=== PATIENT | male | born 1950 | race American Indian/Alaskan Native ===

== ENCOUNTER → 2023-04-06 | Outpatient (BNVA) | payer MEDICARE, MEDICAID, SELFPAY | END | disposition home or self-care (01) | PROVIDERS: PCP Nurse Practitioner Family; Referring Provider Nurse Practitioner Family; Visit Provider Urology ==

== ENCOUNTER → 2024-06-09 | Outpatient (CLI) | payer MEDICARE, MEDICAID, SELFPAY ==
[2024-06-09 12:01] LABS: Collection Type, Urine Clean Catch; Squamous Epithelial Cell,Urine 0 /hpf (0-5)
[2024-06-09 12:15] LABS: Basophils # (Auto) 0.1 Thou/mm3 (0.0-0.2); Basophils % (Auto) 1 % (0-2.5); Eosinophils # (Auto) 0.2 Thou/mm3 (0.0-0.5); Eosinophils % (Auto) 2 % (0-10); Hematocrit 36.6 % (41.0-53.0); Hemoglobin 12.2 g/dL (13.5-16.0); Immature Granulocytes % (Auto) 0 % (0-0); Immature Granulocytes Auto 0.03 Thou/mm3 (0.00-0.00); Lymphocytes # (Auto) 1.5 Thou/mm3 (1.0-4.8); Lymphocytes % (Auto) 20 % (10-50); Mean Corpuscular HGB Conc 33.3 g/dl (31.0-37.0); Mean Corpuscular Hemoglobin 28.7 pg (25.0-35.0); Mean Corpuscular Volume 86 fL (80-100); Monocytes # (Auto) 0.5 Thou/mm3 (0.0-0.8); Monocytes % (Auto) 7 % (0-12); Neutrophils # (Auto) 5.2 Thou/mm3 (1.8-7.7); Neutrophils % (Auto) 69 % (37-80); Nucleated Red Blood Cell % 0 /100 WBC (0); Platelet Count 147 Thou/mm3 (140-440); RDW Standard Deviation 41.7 fL (35.1-43.9); Red Blood Count 4.25 Miln/mm3 (4.50-5.90); White Blood Count 7.5 Thou/mm3 (3.8-10.6)
[2024-06-09 12:23] LABS: Bilirubin,Urine Negative (Negative); Blood,Urine Negative (Negative); Clarity,Urine Clear (Clear/Hazy); Color,Urine Yellow (Lt Yel-Yel); Glucose, Urine Negative (Negative); Ketones,Urine Negative (Negative); Leukocyte Esterase,Urine Negative (Negative); Nitrite,Urine Negative (Negative); PH,Urine 5.5 (5.0-7.0); Protein,Urine Trace (Neg - Trace); RBC,Urine 2 /hpf (0-3); Specific Gravity,Urine 1.026 (1.001-1.035); Urobilinogen,Urine Negative mg/dL (0.0-1.0); WBC,Urine 1 /hpf (0-5)
[2024-06-09 12:26] LABS: Parathyroid Hormone Intact 114.4 pg/ml (18.5-88.0)
[2024-06-09 12:29] LABS: Alanine Aminotransferase 15 U/L (10-49); Albumin, Serum 4.2 gm/dL (3.4-4.8); Albumin/Globulin Ratio 1.6 (1.2-2.2); Alkaline Phosphatase 81 U/L (46-116); Anion Gap 7 (7-16); Aspartate Amino Transferase 20 U/L (0-34); BUN/Creatinine Ratio 13 Ratio (12-20); Bilirubin,Total 0.4 mg/dL (0.3-1.2); Blood Urea Nitrogen 17 mg/dL (9-23); Carbon Dioxide 25.6 mMol/L (20.0-31.0); Chloride 107 mMol/L (98-107); Creatinine (Component) 1.3 mg/dL (0.6-1.3); Globulin 2.7 gm/dL (2.3-3.5); Glucose 96 mg/dL (74-106); Osmolality,Calculated 280 (275-295); Potassium 3.8 mMol/L (3.4-5.1); Sodium 140 mMol/L (136-145); Total Protein 6.9 gm/dL (5.7-8.2); eGFR 57 See Note
== END | disposition home or self-care (01) ==
LOC: COPL 11:09
PROVIDERS: PCP Physician Assistant; Referring Provider Internal Medicine; Visit Provider Internal Medicine
DX: I10 Essential (primary) hypertension (principal); N18.30 Chronic kidney disease, stage 3 unspecified; E78.5 Hyperlipidemia, unspecified
CPT/HCPCS: 36415; 80053; 81001; 83970; 85025

== ENCOUNTER → 2024-08-02 | Outpatient (BNVA) | payer MEDICARE, MEDICAID, SELFPAY | END | disposition home or self-care (01) | PROVIDERS: PCP Nurse Practitioner Family; Referring Provider Nurse Practitioner Family; Visit Provider Urology | DX: N40.1 Benign prostatic hyperplasia with lower urinary tract symptoms (principal); N13.8 Other obstructive and reflux uropathy; C61 Malignant neoplasm of prostate; Z80.42 Family history of malignant neoplasm of prostate; I10 Essential (primary) hypertension; Z86.73 Personal history of transient ischemic attack (TIA), and cerebral infarction without residual deficits; E78.00 Pure hypercholesterolemia, unspecified | CPT/HCPCS: 81003; 99213; G0463 ==

== ENCOUNTER → 2024-08-19 | Outpatient (CLI) | payer MEDICARE, MEDICAID, SELFPAY ==
--- NOTE | 2024-08-19 | XR_ITS ---
Examination: Bone scan whole body, radioisotope Date and time of exam: August 19, 2024 1419 hours INDICATIONS: Elevated PSA and laboratory examination this week, diagnosis malignant neoplasm prostate staging Technique: Study has been performed with intravenous administration of 23.3 mci 99M technetium MDP. Anterior, posterior whole body images are obtained. Images have been obtained including the lower extremities. Findings: Abnormal increased isotope accumulation L5, L2, L1 and multiple spots in the thoracic and cervical spine Abnormal increased uptake posterior multiple left ribs Increased uptake also in the iliac bones bilaterally Asymmetric uptake about the knees IMPRESSION: Findings most consistent with widespread osseous metastatic disease Consider plain films cervical thoracic lumbar spine, bilateral ribs AP pelvis follow-up
--- NOTE | 2024-08-19 15:11 | XR_ITS ---
Examination: PA lateral chest 2 views TECHNIQUE: Upright PA lateral chest 2 views Exam date and time: August 19, 2024 1601 hours Comparison March 04, 2019 INDICATIONS: Solitary pulmonary nodule right upper lobe on chest x-ray March 04, 2019 FINDINGS: Normal heart size Median sternotomy wires Aortic prosthetic valve Blunting of the right lateral costophrenic angle No pneumonia or pulmonary edema Status post left thoracotomy No current pulmonary nodules IMPRESSION: No current pulmonary nodules
== END | disposition home or self-care (01) ==
PROVIDERS: PCP Nurse Practitioner Family; Referring Provider Urology; Visit Provider Urology
DX: C61 Malignant neoplasm of prostate (principal); C79.9 Secondary malignant neoplasm of unspecified site
CPT/HCPCS: 71046; 78306; A9503

== ENCOUNTER → 2024-08-30 | Outpatient (CLI) | payer MEDICARE, MEDICAID, SELFPAY ==
--- NOTE | 2024-08-30 16:30 | XR_ITS ---
Examination: CT abdomen and pelvis without contrast. Coronal 3-D reconstructions. Sagittal 2-D reconstructions. Date and time of exam:August 30, 2024 0903 hours Comparison August 07, 2017 INDICATIONS: Diagnosis malignant neoplasm prostate, widespread osseous metastatic disease on nuclear medicine bone scan August 19, 2024, restaging CTDI: vol (mGy): 8.92 DLP: (mGycm): 507 Technique: Axial images of the abdomen have been obtained, 3 mm slice thickness Intravenous contrast material has not been administered. Low dose protocols were performed. One or more of the following dose reduction techniques were used; automated exposure control, adjustment of the mA and/or KV according to patient size, use of iterative reconstruction technique. Findings: No focal liver lesions Absent gallbladder Spleen is not enlarged No pancreatic or adrenal mass Moderate bilateral renal parenchymal scar formation Complex cyst posterior margin right kidney, axial image 102, 27 mm irregular margins Aorta normal size No abdominal or pelvic lymphadenopathy Colonic diverticulosis, no diverticulitis AP prostate dimension 3.3 cm Focal sclerotic areas throughout the bones, most prominent posterior right iliac bone axial image 210, measuring 18 mm IMPRESSION: Recommend renal sonography to assess complex cyst posterior margin right kidney No abdominal or pelvic lymphadenopathy Osteoblastic metastatic disease
== END | disposition home or self-care (01) ==
PROVIDERS: PCP Nurse Practitioner Family; Referring Provider Urology; Visit Provider Urology
DX: N28.1 Cyst of kidney, acquired (principal); C79.9 Secondary malignant neoplasm of unspecified site; C61 Malignant neoplasm of prostate
CPT/HCPCS: 74176

== ENCOUNTER → 2024-10-07 | Outpatient (BNVA) | payer MEDICARE, MEDICAID, SELFPAY | END | disposition home or self-care (01) | PROVIDERS: Visit Provider Urology | DX: N35.919 Unspecified urethral stricture, male, unspecified site (principal); N40.1 Benign prostatic hyperplasia with lower urinary tract symptoms; N13.8 Other obstructive and reflux uropathy; C61 Malignant neoplasm of prostate; I10 Essential (primary) hypertension; E78.00 Pure hypercholesterolemia, unspecified; Z86.73 Personal history of transient ischemic attack (TIA), and cerebral infarction without residual deficits | CPT/HCPCS: 52000; 81003; 96372; A4217; A4649; C1894; J1580; A9270 ==

== ENCOUNTER 2024-11-02 08:00 | Day surgery (SDC) | payer MEDICARE, MEDICAID, SELFPAY ==
--- NOTE | 2024-11-01 10:30 | EKG_ITS ---
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: MILTON : 1950 Requested By: Joel Monteiro Order Number: [id number] Reading MD: Joel Monteiro Measurements Intervals [place] Rate: 57 P: 66 AR: 222 QRS: -32 QRSD: 117 T: 78 QT: 412 QTc: 403 Interpretive Statements SINUS BRADYCARDIA WITH FIRST DEGREE AV BLOCK MARKED LEFT AXIS DEVIATION [QRS AXIS < -30] MODERATE INTRAVENTRICULAR CONDUCTION DELAY [110+ ms QRS DURATION] MINIMAL VOLTAGE CRITERIA FOR LVH, CONSIDER NORMAL VARIANT [MEETS CRITERIA IN ONE OF: R(aVL), S(V1), R(V5), R(V5/V6)+S(V1)] NONSPECIFIC T-WAVE ABNORMALITY Compared to ECG 03/20/2020 08:56:22 First degree AV block now present T-wave abnormality now present /store/S0/[id number]/ecg/[id number].pdf
[2024-11-01 10:32] VITALS: BMI 26.7
[2024-11-01 12:03] LABS: Alanine Aminotransferase 16 U/L (10-49); Albumin, Serum 4.6 gm/dL (3.4-4.8); Albumin/Globulin Ratio 1.4 (1.2-2.2); Alkaline Phosphatase 80 U/L (46-116); Anion Gap 8 (7-16); Aspartate Amino Transferase 21 U/L (0-34); BUN/Creatinine Ratio 16 Ratio (12-20); Bilirubin,Total 0.7 mg/dL (0.3-1.2); Blood Urea Nitrogen 27 mg/dL (9-23); Calcium 9.2 mg/dL (8.3-10.6); Calcium (Corrected) 9.2 mg/dL (8.5-10.1); Carbon Dioxide 25.1 mMol/L (20.0-31.0); Chloride 109 mMol/L (98-107); Creatinine (Component) 1.7 mg/dL (0.6-1.3); Estimated Creatinine Clearance 44.9 mL/min (>60); Globulin 3.2 gm/dL (2.3-3.5); Glucose 100 mg/dL (74-106); Osmolality,Calculated 288 (275-295); Potassium 4.2 mMol/L (3.4-5.1); Sodium 142 mMol/L (136-145); Total Protein 7.8 gm/dL (5.7-8.2); eGFR 42 See Note
--- NOTE | 2024-11-01 15:12 | SUR.PREOP ---
Pt has history of CVA, memory loss, lives with his son with transport services. Instructions given to pt and transport person which will bring him tomorrow.
--- NOTE | 2024-11-01 15:14 | SUR.PREOP ---
Cardiac records reviewed with Dr Monteiro
[2024-11-02] VITALS (9 sets, daily range): BP systolic 161–186; BP diastolic 81–96; PULSE 53–73; RESP 12–18; TEMP 36.5–36.7; O2SAT 98–100; BMI 27.0
[2024-11-02] MEDS: RINGERS LACTATED 1000 ML 1,000 ML 20 ML IV (08:41)
[2024-11-02] MEDS: hydrALAZINE INJ 20 MG/ML VIAL 5 MG IV (10:07)
--- NOTE | 2024-11-02 10:08 | PD.SUROPNT ---
Date of Procedure 11/02/24 Pre Op Diagnosis BPH with urinary obstruction and LUTS, biopsy-proven adenocarcinoma of the prostate gland, urethral stricture dense Post Op Diagnosis Same plus stricture of fossa navicularis Procedure Urethral dilation with male urethral sounds, cystoscopic examination, DVIU, insertion of Greenberg catheter Findings Stricture of the fossa navicularis, dense stricture distal to external urinary sphincter, BPH with urinary obstruction and prostate cancer Procedure Description Indication for procedure this is a 74-year-old gentleman this patient has history of injury to the pelvis. Patient had developed urethral stricture he had DVIU in the past. He had elevated PSA recently he was diagnosed with prostate cancer. He had a cystoscopic examination in the office was found to have a dense stricture distal to the external sphincter. He was recommended cystoscopic examination DVIU procedure and complications were discussed with patient in great detail informed consent is obtained. The patient received 160 mg Gentamicin IM pre-op prophylaxis. Informed consent was obtained for the procedure. General anesthesia was given uneventfully patient was positioned in a dorsal lithotomy position the patient was prepped in a sterile manner. Local anesthetic was placed into the urethra. Cystoscopy was then performed he had stricture of fossa navicularis dilation with male urethral sounds up to 26 Citizen Of [place] was carried out. The urethra had dense stricture distal to the external urinary sphincter. Next I took the a DVIU instrument I passed the 5 Citizen [place] open-ended ureteral stent into the bladder. With cold knife I cut the dense stricture at 12:00. Next I was able to advance the scope into the bladder. There was [bilobar prostatic enlargement. There was no involvement of bladder neck by prostatic cancer, examination of the bladder revealed no evidence of cancerous lesions, papillary or polyp type lesions or stones. There was marked] trabeculation Both ureters were putting out clear urine. The bladder was completely drained and the scope removed. #18 Greenberg catheter was inserted balloon was inflated with 10 cc of water the patient tolerated the procedure well. Post-op instructions were given. The patient is to call the office should any problems occur. Pathology / specimen None Estimated Blood Loss 1.0 Condition Stable Disposition PACU Surgeon Derek Schrader MD Surgical Staff Operation Date: 11/02/24 10:00 Case Staff Anesthesiologist: Joel Monteiro
--- NOTE | 2024-11-02 10:23 | SUR.PHASEI ---
0955: Pt received in [facility] via [employer]. Report from Lili RN, Ketan RN, Dr. Monteiro. Pt groggy, but awake. Resp even, unlabored. BP elevated 182/89. Anesthesia stated order for medication written. If BP does not come down follow order. Other VS stable. Rowland to gravity draining clear, pale yellow urine. Pt denies pain. 1007: BP not coming down. Hydralazine 5 mg IV given. 1015: BP coming down at 165/85. Anesthesia at bedside. Stated BP good. 1025: BP has remained down 168/87. Urine in rowland bag becoming pale pink in color. Pt denies pain.
--- NOTE | 2024-11-02 10:40 | SUR.PHASEII ---
1035: Pt more awake, alert. VS stable. Denies pain. Sitting up tolerating po fluids with no difficulty swallowing and no n/v.
--- NOTE | 2024-11-02 11:50 | SUR.PHASEII ---
1105: Pt fully awake, oriented x3. VS stable. Denies pain. Greenberg draining clear pale pink urine. Pt dressed and assisted to transport chair. Ambulation steady. Pt and certified caregiver stated understanding of discharge instructions. Pt also instructed to pickling solution maker his medication at [facility]. Pt discharged from [facility] in stable condition.
== END 2024-11-02 11:05 | disposition home or self-care (01) ==
PROVIDERS: Anesthesiology; Surgery; PCP Nurse Practitioner Family; Referring Provider Urology; Visit Provider Urology
PROC: 0T7D8ZZ Dilation of Urethra, Via Natural or Artificial Opening Endoscopic (ICD-10-PCS; CPT 52276; principal; 2024-11-02 09:45)
DX: N35.919 Unspecified urethral stricture, male, unspecified site (principal); C61 Malignant neoplasm of prostate; N40.1 Benign prostatic hyperplasia with lower urinary tract symptoms; N13.8 Other obstructive and reflux uropathy; Z01.810 Encounter for preprocedural cardiovascular examination
CPT/HCPCS: 52276; 36415; 80053; 93005; A4217; A4649; C1894; J0360; J1100; J1580; J2371; J2704; J2765; J3010; J3490; J7120

== ENCOUNTER → 2024-11-04 | Outpatient (BNVA) | payer MEDICARE, MEDICAID, SELFPAY | END | disposition home or self-care (01) | PROVIDERS: Visit Provider Student in an Organized Health Care Education/Training Program | DX: Z76.89 Persons encountering health services in other specified circumstances (principal) | CPT/HCPCS: 99212; G0463 ==

== ENCOUNTER 2024-11-06 21:44 | Emergency (ER) | payer MEDICARE, MEDICAID, SELFPAY ==
[2024-11-06 22:44] VITALS: BP 113/67; PULSE 71; RESP 16; TEMP 36.7; O2SAT 96; BMI 27.5
--- NOTE | 2024-11-06 22:52 | PD.EDRME ---
Rapid Medical Screening Exam RME Arrival date/time: 11/06/24 21:44 Chief Complaint: Urogenital-Male Time Seen by Provider: 11/06/24 22:21 Vital signs: Vital Signs Temperature 98.1 F 11/06/24 22:44 Pulse Rate 71 11/06/24 22:44 Respiratory Rate 16 11/06/24 22:44 Blood Pressure 113/67 11/06/24 22:44 Pulse Oximetry (%) 96 11/06/24 22:44 Oxygen Delivery Method Room Air 11/06/24 22:44 Vital signs reviewed by provider: Yes RME Narrative: 74-year-old male presents with a 2-hour history of his Greenberg catheter not draining. Family indicates it was flowing and then after they emptied it out 2 hours ago it stopped draining. Greenberg was placed by urologist who performed the procedure on his prostate for prostate cancer. He states it was only supposed to be in place for 5 days and tomorrow is the fifth day. Family is under the impression that he is to return here for the removal. I informed the family that it is likely that he has an appointment with the urologist tomorrow.
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
== END 2024-11-07 00:11 | disposition home or self-care (01) ==
PROVIDERS: Emergency Provider Emergency Medicine; PCP Nurse Practitioner Family
DX: T83.091A Other mechanical complication of indwelling urethral catheter, initial encounter (principal); C61 Malignant neoplasm of prostate; Y84.6 Urinary catheterization as the cause of abnormal reaction of the patient, or of later complication, without mention of misadventure at the time of the procedure
CPT/HCPCS: 81001; 87086; 99281

== ENCOUNTER 2024-11-16 12:39 | Emergency (ER) | payer MEDICARE, MEDICAID, SELFPAY ==
[2024-11-16 12:46] VITALS: BP 126/72; PULSE 63; RESP 18; TEMP 36.6; O2SAT 98; BMI 26.2
--- NOTE | 2024-11-16 13:01 | PD.EDRME ---
Rapid Medical Screening Exam RME Arrival date/time: 11/16/24 12:39 74-year-old male presents to the emergency department today for complaint of hematuria Chief Complaint: Urogenital-Male Vital signs: Vital Signs Temperature 97.8 F 11/16/24 12:46 Pulse Rate 63 11/16/24 12:46 Respiratory Rate 18 11/16/24 12:46 Blood Pressure 126/72 11/16/24 12:46 Pulse Oximetry (%) 98 11/16/24 12:46 Oxygen Delivery Method Room Air 11/16/24 12:46
[2024-11-16 13:22] LABS: Collection Type, Urine Clean Catch
[2024-11-16 13:25] LABS: Basophils # (Auto) 0.1 Thou/mm3 (0.0-0.2); Basophils % (Auto) 1 % (0-2.5); Eosinophils # (Auto) 0.1 Thou/mm3 (0.0-0.5); Eosinophils % (Auto) 2 % (0-10); Hematocrit 36.4 % (41.0-53.0); Hemoglobin 12.4 g/dL (13.5-16.0); Immature Granulocytes % (Auto) 0 % (0-0); Immature Granulocytes Auto 0.01 Thou/mm3 (0.00-0.00); Lymphocytes # (Auto) 1.7 Thou/mm3 (1.0-4.8); Lymphocytes % (Auto) 23 % (10-50); Mean Corpuscular HGB Conc 34.1 g/dl (31.0-37.0); Mean Corpuscular Hemoglobin 29.1 pg (25.0-35.0); Mean Corpuscular Volume 85 fL (80-100); Monocytes # (Auto) 0.3 Thou/mm3 (0.0-0.8); Monocytes % (Auto) 4 % (0-12); Neutrophils # (Auto) 5.4 Thou/mm3 (1.8-7.7); Neutrophils % (Auto) 70 % (37-80); Nucleated Red Blood Cell % 0 /100 WBC (0); Platelet Count 185 Thou/mm3 (140-440); RDW Standard Deviation 42.3 fL (35.1-43.9); Red Blood Count 4.26 Miln/mm3 (4.50-5.90); White Blood Count 7.7 Thou/mm3 (3.8-10.6)
[2024-11-16 13:37] LABS: Bilirubin,Urine Negative (Negative); Blood,Urine 3+ (Negative); Color,Urine Dark-Brown (Lt Yel-Yel); Glucose, Urine Negative (Negative); Ketones,Urine Negative (Negative); Leukocyte Esterase,Urine Positive (Negative); Nitrite,Urine Negative (Negative); PH,Urine 5.5 (5.0-7.0); Protein,Urine 1+ (Neg - Trace); RBC,Urine 7448 /hpf (0-3); Specific Gravity,Urine 1.019 (1.001-1.035); Squamous Epithelial Cell,Urine 3 /hpf (0-5); Urobilinogen,Urine Negative mg/dL (0.0-1.0); WBC,Urine 70 /hpf (0-5)
[2024-11-16 13:47] LABS: Alanine Aminotransferase 16 U/L (10-49); Albumin, Serum 4.1 gm/dL (3.4-4.8); Albumin/Globulin Ratio 1.4 (1.2-2.2); Alkaline Phosphatase 71 U/L (46-116); Anion Gap 10 (7-16); Aspartate Amino Transferase 22 U/L (0-34); BUN/Creatinine Ratio 15 Ratio (12-20); Bilirubin,Total 0.6 mg/dL (0.3-1.2); Blood Urea Nitrogen 22 mg/dL (9-23); Calcium 8.5 mg/dL (8.3-10.6); Calcium (Corrected) 8.5 mg/dL (8.5-10.1); Carbon Dioxide 24.9 mMol/L (20.0-31.0); Chloride 106 mMol/L (98-107); Creatinine (Component) 1.5 mg/dL (0.6-1.3); Estimated Creatinine Clearance 50.9 mL/min (>60); Globulin 2.9 gm/dL (2.3-3.5); Glucose 120 mg/dL (74-106); Osmolality,Calculated 285 (275-295); Potassium 3.8 mMol/L (3.4-5.1); Sodium 141 mMol/L (136-145); eGFR 48 See Note
[2024-11-16 13:53] LABS: Clarity,Urine Bloody (Clear/Hazy); Culture Indicated,Urine Yes
[2024-11-16 13:57] LABS: INR 1.1 (0.9-1.3); Partial Thromboplastin Time 62.9 Seconds (22.0-36.0); Prothrombin Time 11.9 Seconds (9.0-12.2)
--- NOTE | 2024-11-16 15:45 | PD.EDADULT ---
ED General RME/HPI General Chief complaint: Urogenital-Male Stated complaint: HEMATURIA, WEAKNESS Arrival date/time: 11/16/24 12:39 RME / HPI RME / HPI narrative: 11/16/24 12:39 74-year-old male presents to the emergency department today for complaint of hematuria Related Data Home Medications ?Medication ?Instructions ?Recorded ?Confirmed metoprolol succinate 50 mg 50 mg PO QDAY 11/23/19 11/04/24 tablet,extended release 24 hr tamsulosin 0.4 mg capsule 0.4 mg PO QHS 12/29/22 11/04/24 atorvastatin 80 mg tablet (Lipitor) 80 mg PO QPM 11/01/24 11/04/24 benazepril 20 mg tablet 20 mg PO DAILY 11/01/24 11/04/24 calcitriol 0.25 mcg capsule 0.25 mcg PO DAILY 11/01/24 11/04/24 clopidogrel 75 mg tablet (Plavix) 75 mg PO QDAY 11/01/24 11/04/24 donepezil 5 mg tablet 5 mg PO HS 11/01/24 11/04/24 memantine 5 mg tablet 5 mg PO DAILY 11/01/24 11/04/24 vitamin B complex-vitamin C-folic 1 tab PO Q24H 11/01/24 11/04/24 acid 0.8 mg tablet (Dialyvite 800) Previous Rx's ?Medication ?Instructions ?Recorded tramadol 50 mg tablet 50 mg PO Q8H PRN pain #14 tabs 11/02/24 Allergies Allergy/AdvReac Type Severity Reaction Status Date / Time iodine Allergy Unknown Verified 11/06/24 21:45 SHELL FISH Allergy Mild unknown Uncoded 11/06/24 21:45 Course Orders Category Date Time Status CT abdomen pelvis wo con Stat Exams 11/16/24 13:00 Ordered CBC Stat Lab 11/16/24 13:14 Completed Comprehensive Metabolic Panel Stat Lab 11/16/24 13:14 Completed PT [Prothrombin Time with INR] Stat Lab 11/16/24 13:14 Completed PTT [Partial Thromboplastin Time] Stat Lab 11/16/24 13:14 Completed UA, C/S IF [Urinalysis, C/S if Indicated] Stat Lab 11/16/24 13:04 Completed Urine Culture Stat Lab 11/16/24 13:04 Received Vital Signs Vital signs: Vital Signs Temperature 97.8 F 04/30/25 12:46 Pulse Rate 63 11/16/24 12:46 Respiratory Rate 18 11/16/24 12:46 Blood Pressure 126/72 11/16/24 12:46 Pulse Oximetry (%) 98 11/16/24 12:46 Oxygen Delivery Method Room Air 11/16/24 12:46 Discharge Plan Prescriptions/Referrals Prescriptions/Med Rec: No Action metoprolol succinate 50 mg tablet extended release 24 hr 50 mg PO QDAY tamsulosin 0.4 mg capsule 0.4 mg PO QHS donepezil 5 mg tablet 5 mg PO HS benazepril 20 mg tablet 20 mg PO DAILY calcitriol 0.25 mcg capsule 0.25 mcg PO DAILY Patient Comments: TAKE 1 CAPSULE BY MOUTH DAILY Dialyvite 800 0.8 mg tablet 1 tab PO Q24H atorvastatin [Lipitor] 80 mg tablet 80 mg PO QPM memantine 5 mg tablet 5 mg PO DAILY Patient Comments: TAKE 1 TABLET BY MOUTH TWICE DAILY clopidogrel [Plavix] 75 mg tablet 75 mg PO QDAY tramadol 50 mg tablet 50 mg PO Q8H PRN (Reason: pain) Qty: 14 0RF Referrals: Megan)Alice PA-C [Primary Care Provider] - In 1 week Patient/Caregiver Discharge Instructions Print Language: [place] Citizen
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
--- NOTE | 2024-11-16 16:18 | PC.NURSE ---
THIS RN WENT IN ROOM TO INTRODUCE MYSELF AND PROVIDE INITIAL LEAD RIDER, PT DID NOT WANT TO ANSWER THIS RNS QUESTIONS AND REFUSED TO CHANGE INTO GOWN FOR PROVIDER ASSESSMENT.
[2024-11-16 16:20] VITALS: BP 139/77; PULSE 58; RESP 17; TEMP 36.6; O2SAT 97
--- NOTE | 2024-11-16 16:31 | PC.NURSE ---
SPOKE W/SON HAYDEN, HE WILL NOT BE COMING DOWN HERE BUT STATES HIS SISTERS WILL BE COMING AND PROVIDER CAN SPEAK W/THEM WHEN THEY GET HERE. PT REFUSING CATHETER AT THIS TIME.
--- NOTE | 2024-11-16 17:17 | PC.NURSE ---
PT [place] DISCHARGED W/O NURSING ASSESSMENT HE REFUSED. PROVIDER WAS MADE AWARE.
== END 2024-11-16 16:45 | disposition home or self-care (01) ==
PROVIDERS: Nurse Practitioner Primary Care; Emergency Provider Emergency Medicine; PCP Nurse Practitioner Family
DX: R31.9 Hematuria, unspecified (principal)
CPT/HCPCS: 36415; 80053; 81001; 85025; 85610; 85730; 87086; 99283

== ENCOUNTER → 2024-11-28 | Outpatient (BNVA) | payer MEDICARE, MEDICAID, SELFPAY | END | disposition home or self-care (01) | PROVIDERS: PCP Nurse Practitioner Family; Referring Provider Nurse Practitioner Family; Visit Provider Urology | DX: C61 Malignant neoplasm of prostate (principal); I12.9 Hypertensive chronic kidney disease with stage 1 through stage 4 chronic kidney disease, or unspecified chronic kidney disease; N18.30 Chronic kidney disease, stage 3 unspecified; Z86.73 Personal history of transient ischemic attack (TIA), and cerebral infarction without residual deficits; E66.9 Obesity, unspecified; Z68.26 Body mass index [BMI] 26.0-26.9, adult; E78.00 Pure hypercholesterolemia, unspecified | CPT/HCPCS: 81003; 99212; G0463 ==

== ENCOUNTER → 2025-04-03 | Outpatient (BNVA) | payer MEDICARE, MEDICAID, SELFPAY | END | disposition home or self-care (01) | PROVIDERS: PCP Nurse Practitioner Family; Referring Provider Nurse Practitioner Family; Visit Provider Urology | DX: C61 Malignant neoplasm of prostate (principal); Z98.890 Other specified postprocedural states; I10 Essential (primary) hypertension; E78.00 Pure hypercholesterolemia, unspecified; I25.10 Atherosclerotic heart disease of native coronary artery without angina pectoris; Z86.73 Personal history of transient ischemic attack (TIA), and cerebral infarction without residual deficits | CPT/HCPCS: 81003; 99212; G0463 ==

== ENCOUNTER 2025-05-15 10:55 | Emergency (ER) | payer MEDICARE, MEDICAID, SELFPAY ==
[2025-05-15 10:56] VITALS: BMI 35.2
--- NOTE | 2025-05-15 11:15 | PD.EDRME ---
Rapid Medical Screening Exam RME Arrival date/time: 05/15/25 10:55 75-year-old male with a history of hyperlipidemia, hypertension, dementia, presents to the emergency room with a chief complaint of unable to urinate x 2 days. Prior to my evaluation the patient urinated himself. Per nephew at bedside the patient is also a little altered. I have greeted and performed a focused initial assessment of this patient. A comprehensive ED assessment and evaluation of the patient, analysis of all test results, and completion of the medical decision making process will be conducted by additional ED providers. Chief Complaint: Urogenital-Male Time Seen by Provider: 05/15/25 11:06 Vital signs reviewed by provider: Yes Exam: Patient is a GCS of 15. He is alert and oriented x 2 Patient has clear bilateral lung sounds. Patient has tenderness to his lower abdominal area Clinical Impression: Urinary tract infection/acute urinary retention/dementia
[2025-05-15 11:55] LABS: Basophils # (Auto) 0.1 Thou/mm3 (0.0-0.2); Basophils % (Auto) 1 % (0-2.5); Eosinophils # (Auto) 0.1 Thou/mm3 (0.0-0.5); Eosinophils % (Auto) 1 % (0-10); Hematocrit 44.7 % (41.0-53.0); Hemoglobin 14.2 g/dL (13.5-16.0); Immature Granulocytes Auto 0.02 Thou/mm3 (0.00-0.00); Lymphocytes # (Auto) 1.9 Thou/mm3 (1.0-4.8); Lymphocytes % (Auto) 20 % (10-50); Mean Corpuscular HGB Conc 31.8 g/dl (31.0-37.0); Mean Corpuscular Hemoglobin 28.5 pg (25.0-35.0); Mean Corpuscular Volume 90 fL (80-100); Monocytes # (Auto) 0.6 Thou/mm3 (0.0-0.8); Monocytes % (Auto) 6 % (0-12); Neutrophils # (Auto) 6.7 Thou/mm3 (1.8-7.7); Neutrophils % (Auto) 72 % (37-80); Nucleated Red Blood Cell # 0.00 Thou/mm3 (0.00-0.00); Nucleated Red Blood Cell % 0 /100 WBC (0); Platelet Count 154 Thou/mm3 (140-440); RDW Standard Deviation 44.2 fL (35.1-43.9); Red Blood Count 4.98 Miln/mm3 (4.50-5.90); White Blood Count 9.3 Thou/mm3 (3.8-10.6)
[2025-05-15 12:17] LABS: Collection Type, Urine Clean Catch
[2025-05-15 12:17] LABS: Alanine Aminotransferase 10 U/L (10-49); Albumin, Serum 5.2 gm/dL (3.4-4.8); Albumin/Globulin Ratio 1.7 (1.2-2.2); Alkaline Phosphatase 93 U/L (46-116); Anion Gap 13 (7-16); Aspartate Amino Transferase 26 U/L (0-34); BUN/Creatinine Ratio 13 Ratio (12-20); Bilirubin,Total 1.0 mg/dL (0.3-1.2); Blood Urea Nitrogen 21 mg/dL (9-23); Calcium 9.5 mg/dL (8.3-10.6); Calcium (Corrected) 9.5 mg/dL (8.5-10.1); Carbon Dioxide 25.4 mMol/L (20.0-31.0); Chloride 105 mMol/L (98-107); Creatinine (Component) 1.6 mg/dL (0.6-1.3); Estimated Creatinine Clearance 56.6 mL/min (>60); Globulin 3.0 gm/dL (2.3-3.5); Glucose 112 mg/dL (74-106); Lipase 46 U/L (12-53); Osmolality,Calculated 288 (275-295); Potassium 4.3 mMol/L (3.4-5.1); Sodium 143 mMol/L (136-145); Total Protein 8.2 gm/dL (5.7-8.2); eGFR 44 See Note
[2025-05-15 12:29] LABS: Bilirubin,Urine Negative (Negative); Blood,Urine 1+ (Negative); Clarity,Urine Clear (Clear/Hazy); Color,Urine Yellow (Lt Yel-Yel); Glucose, Urine Negative (Negative); Ketones,Urine Negative (Negative); Leukocyte Esterase,Urine Positive (Negative); Nitrite,Urine Negative (Negative); PH,Urine 5.5 (5.0-7.0); Protein,Urine Trace (Neg - Trace); RBC,Urine 19 /hpf (0-3); Specific Gravity,Urine 1.022 (1.001-1.035); Squamous Epithelial Cell,Urine < 1 /hpf (0-5); Urobilinogen,Urine Negative mg/dL (0.0-1.0); WBC,Urine 72 /hpf (0-5)
[2025-05-15 13:26] VITALS: BP 124/82; PULSE 78
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
== END 2025-05-15 13:34 | disposition home or self-care (01) ==
PROVIDERS: Emergency Provider Nurse Practitioner Family; PCP Physician Assistant
DX: N30.90 Cystitis, unspecified without hematuria (principal); E78.00 Pure hypercholesterolemia, unspecified; F03.90 Unspecified dementia, unspecified severity, without behavioral disturbance, psychotic disturbance, mood disturbance, and anxiety; I10 Essential (primary) hypertension; Z95.0 Presence of cardiac pacemaker; Z95.5 Presence of coronary angioplasty implant and graft; C61 Malignant neoplasm of prostate
CPT/HCPCS: 36415; 80053; 81001; 83690; 85025; 87077; 87086; 87186; 99281

== ENCOUNTER → 2025-06-29 | Outpatient (BNVA) | payer MEDICARE, MEDICAID, SELFPAY | END | disposition home or self-care (01) | PROVIDERS: PCP Physician Assistant; Referring Provider Physician Assistant; Visit Provider Urology | DX: N35.919 Unspecified urethral stricture, male, unspecified site (principal); C61 Malignant neoplasm of prostate; I12.9 Hypertensive chronic kidney disease with stage 1 through stage 4 chronic kidney disease, or unspecified chronic kidney disease; N18.9 Chronic kidney disease, unspecified; Z98.890 Other specified postprocedural states; E66.9 Obesity, unspecified; Z68.26 Body mass index [BMI] 26.0-26.9, adult | CPT/HCPCS: 99213; G0463 ==